=== PATIENT | female | born 1990 | race Caucasian/White ===

== ENCOUNTER 2018-09-26 05:02 | Inpatient (IN) | payer MEDICAID ==
[~2018-09-26] VITALS: Ht 172.7 cm; Wt 65.5 kg
[2018-09-26] MEDS ORDERED: OXYTOCIN 30U/ 0.9% NaCL 500ML 500 ML IV PRN ×2 (05:10→07:35)
[2018-09-26] MEDS: D5%-LACTATED RINGERS 1,000 ML IV SCH ×3 (05:10→22:44)
[2018-09-26] MEDS ORDERED: OXYTOCIN 30U/ 0.9% NaCL 500ML 500 ML IV ONE (05:10)
[2018-09-26] MEDS ORDERED: NEWBORN KIT ONE (05:17)
[2018-09-26] MEDS ORDERED: OXYTOCIN 30U/ 0.9% NaCL 500ML 500 ML ONE (05:17)
[2018-09-26] MEDS ORDERED: FENTANYL PF 100 MCG/2ML IV PRN (05:30)
[2018-09-26] MEDS ORDERED: SODIUM CITRATE/CITRIC ACID 15 ML UDC PO PRN (05:30)
[2018-09-26] MEDS ORDERED: METOCLOPRAMIDE 5 MG/ML, 2ML IVPush PRN (05:30)
[2018-09-26] MEDS ORDERED: MISOPROSTOL 25 MCG TABLET VG PRN (05:30)
[2018-09-26] MEDS ORDERED: PLEASE ENTER ALLERGIES MC SCH (05:30)
[2018-09-26] MEDS ORDERED: TERBUTALINE 1 MG/ML, 1ML IVPush PRN (05:30)
[2018-09-26] MEDS: LACTATED RINGERS 1,000 ML IV SCH ×5 (05:47→22:46)
[2018-09-26 06:04] LABS: BASOPHILS # (AUTO) 0.05 x10^3/uL (0-0.1); BASOPHILS % (AUTO) 1 % (0-1); EOSINOPHILS # (AUTO) 0.07 x10^3/uL (0-0.4); EOSINOPHILS % (AUTO) 1 % (1-7); LYMPHOCYTES % (AUTO) 28 % (22-44); MD NO; MEAN CORPUSCULAR HEMOGLOBIN 25.8 pg (27.0-34.8); MEAN CORPUSCULAR HGB CONC 32.6 g/dL (32.4-35.8); MEAN CORPUSCULAR VOLUME 79.1 fL (80-100); MEAN PLATELET VOLUME 8.4 fL (7.4-10.4); MONOCYTES # (AUTO) 0.87 x10^3/uL (0.2-0.8); MONOCYTES % (AUTO) 9 % (2-9); NEUTROPHILS # (AUTO) 5.84 x10^3/uL (1.8-6.8); NEUTROPHILS % (AUTO) 61 % (42-75); PLATELET COUNT 259 x10^3/uL (130-400); RED BLOOD COUNT 4.09 x10^6/uL (3.82-5.3); RED CELL DISTRIBUTION WIDTH 13.9 % (9.6-15.2)
[2018-09-26 06:07] VITALS: BP 126/84
[2018-09-26] MEDS: LACOSAMIDE 50 MG TABLET HOMEMEDPO SCH ×2 (07:00→19:00)
[2018-09-26] MEDS: LEVETIRACETAM 500 MG TABLET PO SCH ×2 (07:00→21:00)
[2018-09-26] MEDS ORDERED: FENTANYL PF 100 MCG/2ML ONE ×2 (13:23→16:49)
[2018-09-26] MEDS: FENTANYL PF 100 MCG/2ML IVPush PRN ×2 (13:24→16:50)
[2018-09-26] MEDS ORDERED: FENTANYL/BUPIV./NS/PF 250 ML EPIDCONT SCH ×2 (13:36→19:31)
[2018-09-26] MEDS ORDERED: BUPIVACAINE 0.25% ONE ×2 (13:58→19:33)
[2018-09-26] MEDS ORDERED: FENTANYL/BUPIV./NS/PF 250 ML EPIDCONT ONE ×2 (13:58→19:35)
[2018-09-26] MEDS ORDERED: FENTANYL PF 500 MCG, BUPIVACAINE/PF 0.5%, 30ML 62.5 ML in SODIUM CHLORIDE 0.9% 177.5 ML EPIDCONT SCH (14:00)
[2018-09-26] MEDS ORDERED: NALOXONE 0.4 MG/ML, 1ML IVPush PRN (20:00)
[2018-09-26] MEDS ORDERED: LACTATED RINGERS 1,000 ML IVBOLUS PRN (20:00)
[2018-09-26] MEDS ORDERED: EPHEDRINE 50 MG/ML, 1ML IVPush PRN (20:00)
[2018-09-26] MEDS ORDERED: LACOSAMIDE 50 MG TABLET HOMEMEDPO SCH (21:00)
[2018-09-27] MEDS: D5%-LACTATED RINGERS 1,000 ML IV SCH (05:10)
[2018-09-27] MEDS: LACTATED RINGERS 1,000 ML IV SCH (05:10)
[2018-09-27] MEDS ORDERED: OXYTOCIN 30U/ 0.9% NaCL 500ML 500 ML IV SCH (05:46)
[2018-09-27] MEDS ORDERED: OXYTOCIN 30U/ 0.9% NaCL 500ML 500 ML ONE (05:54)
[2018-09-27] MEDS ORDERED: ONDANSETRON 2MG/ML, 2ML IV PRN (06:00)
[2018-09-27] MEDS ORDERED: OXYcodone/APAP 5/325MG TABLET PO PRN (06:00)
[2018-09-27] MEDS ORDERED: MISOPROSTOL 200 MCG TABLET PR PRN (06:00)
[2018-09-27] MEDS: LACOSAMIDE 50 MG TABLET HOMEMEDPO SCH (07:00)
[2018-09-27] MEDS ORDERED: IBUPROFEN 600 MG TABLET ONE (08:09)
[2018-09-27] MEDS: IBUPROFEN 600 MG TABLET PO PRN ×3 (08:11→20:33)
[2018-09-27] MEDS: LEVETIRACETAM 500 MG TABLET PO SCH ×2 (08:38→19:26)
[2018-09-27 08:40] VITALS: BP 131/88
[2018-09-27 12:18] VITALS: BP 115/68
[2018-09-27 13:29] LABS: MEAN CORPUSCULAR HGB CONC 32.1 g/dL (32.4-35.8); MEAN CORPUSCULAR VOLUME 78.1 fL (80-100); MEAN PLATELET VOLUME 7.9 fL (7.4-10.4); PLATELET COUNT 242 x10^3/uL (130-400); RED BLOOD COUNT 3.82 x10^6/uL (3.82-5.3); RED CELL DISTRIBUTION WIDTH 14.2 % (9.6-15.2)
[2018-09-27 15:20] LABS: MD YES
[2018-09-27 15:22] LABS: BANDS%(MANUAL) 8 % (0-7); LYMPH#(MANUAL) 0.37 x10^3/uL (1-3.4); LYMPHS% (MANUAL) 2 % (22-44); MONOS#(MANUAL) 0.19 x10^3/uL (0.3-2.7); MONOS% (MANUAL) 1 % (2-9); SEG#(MANUAL) 16.64 x10^3/uL (1.8-6.8); SEGS% (MANUAL) 89 % (42-75)
[2018-09-27 15:23] LABS: ANISOCYTOSIS 1+; MICROCYTOSIS 1+
[2018-09-27 15:24] LABS: <PLATELET ESTIMATE> ADEQUATE; <PLT MORPHOLOGY> NORMAL PLT MORPH
[2018-09-27 16:15] VITALS: BP 130/76
[2018-09-27] MEDS ORDERED: LEVETIRACETAM 1,000 MG in SODIUM CHLORIDE 0.9% 100 ML IV SCH (18:00)
[2018-09-27] MEDS ORDERED: LACOSAMIDE 50 MG TABLET PO SCH (19:00)
[2018-09-27] MEDS: PRENATAL VIT/IRON/FA 1 EACH TABLET PO SCH (19:25)
[2018-09-27] MEDS: LACOSAMIDE 200 MG HOMEMEDPO SCH (19:25)
[2018-09-27 19:30] VITALS: BP 128/84
[2018-09-27] MEDS ORDERED: DIPH,PERTUSS(ACELL),TET VAC/PF NC IM-VACC ONE (20:23)
[2018-09-27 23:33] VITALS: BP 120/79
[2018-09-28] MEDS: IBUPROFEN 600 MG TABLET PO PRN ×3 (02:43→17:19)
[2018-09-28] MEDS ORDERED: MEASLES,MUMPS&RUBELLA VACC/PF 0.5 ML SQ-VACC ONE ×2 (03:30→10:20)
[2018-09-28 04:04] VITALS: BP 119/72
[2018-09-28] MEDS: PRENATAL VIT/IRON/FA 1 EACH TABLET PO SCH (06:58)
[2018-09-28] MEDS: LACOSAMIDE 200 MG HOMEMEDPO SCH ×2 (06:58→19:15)
[2018-09-28] MEDS: LEVETIRACETAM 500 MG TABLET PO SCH ×2 (06:58→19:15)
[2018-09-28] MEDS: DOCUSATE 100 MG CAPSULE PO PRN ×2 (06:58→17:18)
[2018-09-28 07:00] VITALS: BP 125/82
[2018-09-28 19:15] VITALS: BP 126/77
[2018-09-29] MEDS: IBUPROFEN 600 MG TABLET PO PRN ×2 (00:38→06:27)
[2018-09-29] MEDS: LACOSAMIDE 200 MG HOMEMEDPO SCH (07:00)
[2018-09-29 09:00] VITALS: BP 126/82
[2018-09-29] MEDS: PRENATAL VIT/IRON/FA 1 EACH TABLET PO SCH (09:00)
[2018-09-29] MEDS: LEVETIRACETAM 500 MG TABLET PO SCH (09:00)
[2018-09-29] MEDS: DOCUSATE 100 MG CAPSULE PO PRN (12:35)
== END 2018-09-29 14:15 | disposition home or self-care (01) | DRG 807 ==
LOC: LDIP 05:02 → 2NW 09-27 08:21
PROVIDERS: ADMIT Obstetrics & Gynecology; ATTEND Obstetrics & Gynecology
PROC: 10E0XZZ Delivery of Products of Conception, External Approach (ICD-10-PCS; principal; 2018-09-26)
PROC: 0KQM0ZZ Repair Perineum Muscle, Open Approach (ICD-10-PCS; 2018-09-26)
PROC: 3E0P7VZ Introduction of Hormone into Female Reproductive, Via Natural or Artificial Opening (ICD-10-PCS; 2018-09-26)
PROC: 3E033VJ Introduction of Other Hormone into Peripheral Vein, Percutaneous Approach (ICD-10-PCS; 2018-09-26)
PROC: 3E0R3BZ Introduction of Anesthetic Agent into Spinal Canal, Percutaneous Approach (ICD-10-PCS; 2018-09-26)
PROC: 00HU33Z Insertion of Infusion Device into Spinal Canal, Percutaneous Approach (ICD-10-PCS; 2018-09-26)
DX: O99.354 Diseases of the nervous system complicating childbirth (principal); Z37.0 Single live birth; G40.909 Epilepsy, unspecified, not intractable, without status epilepticus; Z88.1 Allergy status to other antibiotic agents; Z88.8 Allergy status to other drugs, medicaments and biological substances; Z3A.39 39 weeks gestation of pregnancy; O70.1 Second degree perineal laceration during delivery
CPT/HCPCS: 36415; J7121; 82803; 85025; 86850; 86900; G0378; J3010; J3490; J2590; J7120